=== PATIENT | male | born 2000 | race Caucasian/White ===

== ENCOUNTER 2020-03-28 03:15 | Inpatient (IN) | payer SELFPAY ==
[2020-03-28 03:18] VITALS: BP 129/89; PULSE 74; RESP 16; TEMP 36.9; O2SAT 98; BMI 23.6
--- NOTE | 2020-03-28 03:28 | W.ED.PSYCH ---
HPI - Psych General: Chief Complaint: Psychiatric Symptoms Stated Complaint: direct admit to npu/ si Time Seen by Provider: 03/28/20 03:24 History of Present Illness: HPI Narrative: 19-year-old male comes in direct admit to the [facility] from [facility] in [place]. He denies any fever, recent medical illness. MD complaint: suicidal ideation Review of Systems Const: Denies: fever(s) or chills Card: Denies: chest pain or palpitations Resp: Denies: dyspnea, productive cough, non-productive cough or wheezing MDM - Psych MDM Narrative: Medical decision making narrative: Direct admit to [facility]. He is clear of any COVID symptoms. Discharge Plan Discharge Patient Disposition: Admitted As Inpatient Clinical Impression: Suicidal ideation Condition: Stable Coding Level of Care Code ED Automobile Service Station Mechanic for Mariza Kam
[2020-03-28 03:47] VITALS: RESP 16; TEMP 36.9; O2SAT 98
--- NOTE | 2020-03-28 04:42 | PC.NURSE ---
Patient is 19/M direct admit from [facility] with SI/Depression over a break up with his girlfriend. He has extensive history of inpatient treatment since he was a child. Bal 179 and DOA positive for THC. Patient rambles and has delayed response time. He is here on an affidavit. Patient went to [facility] ED via EMS for SI. States that he called for help himself. He admits to drinking today but is not a daily drinker. He reports he has a history of SI with attempts in the past. He says that he has had thoughts of suicide this time for about 6 months intermittently. He stated that he really does not have a plan and if he did he would ?jump off a limb.? When asked if he is suicidal now, his answers are vague and says that he just wants to but that he is not suicidal at this time. He is intermittently tearful and discusses having problems with his girlfriend and states, ? I just want her back.? He admits to a history of depression but no other psychiatric diagnoses. He denies being homicidal and he denies having hallucinations. Home medication is hydroxyzine HCL 50mg PO Q6-8H PRN with No Known Drug Allergies
[2020-03-28 06:00] VITALS: BP 132/98; PULSE 85; RESP 18; TEMP 36.6; O2SAT 98
[2020-03-28] MEDS: nicotine 2 mg Gum BUCCAL ×2 (10:04→16:13)
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
[2020-03-28 14:00] VITALS: BP 116/73; PULSE 70; RESP 18; TEMP 36.7; O2SAT 98
[2020-03-28] MEDS: hyDROXYzine 25 mg Capsule 50 MG PO (20:19)
[2020-03-28] MEDS: trazodone 50 mg Tablet PO (20:20)
[2020-03-28 21:15] VITALS: BP 124/78; PULSE 64; RESP 19; TEMP 36.9; O2SAT 98
[2020-03-29 06:00] VITALS: BP 82/48; PULSE 58; RESP 12; TEMP 36.6; O2SAT 98
[2020-03-29 13:52] VITALS: BP 110/65; PULSE 67; RESP 18; TEMP 36.7; O2SAT 97
--- NOTE | 2020-03-29 14:51 | P.PN_ITS ---
Subjective NPU Subjective: Interval history: The patient says nothing much has changed at all. I agree. He is anxious, jumpy and occasionally irritable. He says he does not like being angry and cannot control his moods. We discussed lithium therapy and he agrees. We discussed patient education, including but not limited to thyroid and renal function, the need for monitoring, etc. we also discussed fluoxetine because of depressive elements in his condition. Again he agrees Medications: Reviewed: Yes Medication Review Details: Current Medications Acetaminophen (Tylenol) 650 mg PO Q4H PRN PRN Reason: MILD PAIN Benztropine Mesylate (Cogentin) 1 mg PO BID PRN PRN Reason: Mild Extrapyramidal symptoms Camphor/Menthol/Phenol (Blistex) 1 applic TOPICAL Q1H PRN PRN Reason: DRYNESS Diphenhydramine HCl (Benadryl) 50 mg IM ONCE PRN PRN Reason: Severe Extrapyramidal Symptoms Diphenhydramine HCl (Benadryl) 50 mg IM Q4H PRN PRN Reason: Severe Aggression Fluoxetine HCl (Prozac) 20 mg PO DAILY JAGJIT Haloperidol (Haldol) 5 mg PO Q4H PRN PRN Reason: AGITATION Haloperidol Lactate (Haldol Inj) 5 mg IM Q4H PRN PRN Reason: Severe Aggression Hydroxyzine Pamoate (Vistaril) 50 mg PO Q6H PRN PRN Reason: ANXIETY Last Admin: 03/28/20 20:19 Dose: 50 mg Documented by: [place] Carbonate (Eskalith) 300 mg PO BID JAGJIT [place] Carbonate (Eskalith) 300 mg PO ONCE ONE Stop: 03/29/20 14:50 Loperamide HCl (Imodium Capsule) 2 mg PO Q6H PRN PRN Reason: DIARRHEA Lorazepam (Ativan) 2 mg IM Q4H PRN PRN Reason: Severe Aggression Nicotine (Nicoderm 21 Mg Patch) 1 patch TRANSDERMA DAILY PRN PRN Reason: NICOTINE WITHDRAWAL Nicotine Polacrilex (Nicorette) 2 mg BUCCAL Q2H PRN PRN Reason: NICOTINE WITHDRAWAL Last Admin: 03/28/20 16:13 Dose: 2 mg Documented by: Olanzapine (Zyprexa Zydis) 5 mg PO Q4H PRN PRN Reason: Agitation/Psychosis Ondansetron HCl (Zofran) 4 mg PO Q6H PRN PRN Reason: NAUSEA AND VOMITING Trazodone HCl (Desyrel) 50 mg PO BEDTIME PRN PRN Reason: SLEEP Last Admin: 03/28/20 20:20 Dose: 50 mg Documented by: Mental Status Exam MSE Comments: This is a 19-year-old male who presents at his stated age. He is clean, neat and well kempt. Mood is dysphoric and angry. Affect is agitated and tense. Cognition: Patient Appearance: Appropriate Level of Consciousness: Awake, Alert, Appropriate and Follows Commands Attention Span Ability: Unable to Focus Level of Alertness: Alert, Able to Remain Focused on Simple Task and Unable to Remain Focused on Simple Task Patient Cognition Impaired: No Ability to Follow Directions: Good Executive Function Ability: No Deficits Noted and Unable to Curb Inappropriate Speech Patient Orientation (long list): Person, Place, Time, Name, Age, Birthday, Day of Month, Day of Week, Month, Time of Day and Year Comprehension Ability: No Impairment Memory Description: Intact Perception: None Receptive Language Skills Age Appropriate: Yes Hallucination Type: None Delusion Description: Not Present Thought Process: Appropriate Thought Content: Circumstantial Anxiety: Anxiety Level: Experiencing a Lot of Symptoms and Sensations Precipitating Stress Factors: Situational Crisis (Having problems with his girlfriend.) Vitals/I&O/Wt Last Vital Signs Temp 98.0 F 03/29/20 13:52 Pulse 67 03/29/20 13:52 Resp 18 03/29/20 13:52 BP 110/65 03/29/20 13:52 Pulse Ox 97 03/29/20 13:52 Weight last 48 hrs Weight 160 lb Physical Exam Narrative: EXAM NARRATIVE: Const: no acute distress, average body habitus, patient oriented x3, no limitations, healthy appearing, alert and well nourished GENERAL APPEARANCE: cooperative, well kempt, in distress and anxious NUTRITIONAL APPEARANCE: thin ORIENTATION/CONSCIOUSNESS: awake, oriented to person, place and time HENMT: FACE & SINUS: normal facial exam NOSE: Normal external nose present EXTERNAL EAR: external ears normal EXTERNAL AUDITORY CANAL: EAC's normal MOUTH: Normal oral and palatal mucosa present THROAT: posterior oropharynx normal Eye: Equal, round and reactive pupils present, EOMs intact bilaterally, conjunctivae normal and no scleral icterus Neck/C-Spine: full ROM, no meningeal signs, no JVD and Thyroid normal Chest: normal inspection of the chest Resp: normal respiratory effort AUSCULTATION: clear to auscultation bilaterally Cardio: no JVD, regular rate, regular rhythm, S1 normal heart sound present and S2 normal heart sound present Extremity: normal to inspection and full ROM Neuro: patient oriented x3, CN's II-XII intact bilaterally, moves all extremities, no focal motor deficits and no sensory deficits noted Skin: no rashes or lesions noted, no wounds, turgor normal, no jaundice, no petechiae and no mottling A&P Assessment and plan (1) Bipolar 1 disorder, mixed, moderate: The patient deserves a trial of mood stabilizer. [place] is well regarded with respect to hostility as well as to mood instability. Status: Acute Involuntary Hold Information 96 Hour Hold: 96 Hour Involuntary Admission: No Attestations NPU Medical Necessity Statement*: I anticipate 5-7 midnights additional hospitalization. Time Spent in Patient Care: Greater than 35 minutes (>than 50% of time spent in counselling and/or direct pt care on unit) . 50 minutes Coding Level of Care Code Acute Insurance Agency Sales Manager for [facility] Fwd Diagnoses Bipolar 1 disorder, mixed, moderate F31.62
[2020-03-29] MEDS: lithium carbonate 300 mg Capsule PO ×2 (15:36→17:44)
[2020-03-29] MEDS: fluoxetine 20 mg Capsule PO (15:36)
[2020-03-29] MEDS: nicotine 2 mg Gum BUCCAL ×2 (16:29→18:25)
[2020-03-29 21:14] VITALS: BP 110/68; PULSE 75; RESP 19; TEMP 36.9; O2SAT 98
[2020-03-29] MEDS: OLANZapine 5 mg ODT PO (21:56)
[2020-03-29] MEDS: hyDROXYzine 25 mg Capsule 50 MG PO (21:57)
[2020-03-29] MEDS: trazodone 50 mg Tablet PO (21:57)
[2020-03-30 06:00] VITALS: BP 98/56; PULSE 49; RESP 16; TEMP 37.1; O2SAT 97
[2020-03-30] MEDS: fluoxetine 20 mg Capsule PO (09:11)
[2020-03-30] MEDS: lithium carbonate 300 mg Capsule PO (09:11)
--- NOTE | 2020-03-30 11:59 | P.DS_ITS ---
Diagnoses at Discharge Discharge Diagnosis (1) Bipolar 1 disorder, mixed, moderate: Status: Resolved Problem details: Patient experienced uncontrollable anger, mood swings and dysphoria. Response to lithium. Reason for Visit Reason for Visit: direct admit to npu/ si Hospital Course Hospital Course Day #2: The patient remains cranky, irritable and [facility] [place] pharmacotherapy as well as fluoxetine are initiated. This in combination may well cool his ardor. Discharge Summary Patient has calmed down on low-dose lithium. The fluoxetine has been discontinued. Patient education undertaken. Involuntary Hold Information 2 96 Hour Hold: 96 Hour Involuntary Admission: No Mental Status Exam MSE Comments: This is a 19-year-old male who presents at his stated age. He is clean, neat and well kempt. Mood is calm and brighter. Affect is friendly and appropriate. Cognition: Patient Appearance: Appropriate Level of Consciousness: Awake, Alert, Appropriate and Follows Commands Attention Span Ability: Unable to Focus Level of Alertness: Alert, Able to Remain Focused on Simple Task and Unable to Remain Focused on Simple Task Patient Cognition Impaired: No Ability to Follow Directions: Good Executive Function Ability: No Deficits Noted and no more inappropriate Speech Patient Orientation (long list): Person, Place, Time, Name, Age, Birthday, Day of Month, Day of Week, Month, Time of Day and Year Comprehension Ability: No Impairment Memory Description: Intact Perception: None Receptive Language Skills Age Appropriate: Yes Hallucination Type: None Delusion Description: Not Present Thought Process: Integrated and free of any racing, blocking or looseness of association Thought Content: Focused Anxiety: Low Precipitating Stress Factors: Situational Crisis (Having problems with his girlfriend.) Physical Exam Narrative: EXAM NARRATIVE: Const: no acute distress, average body habitus, patient oriented x3, no limitations, healthy appearing, alert and well nourished GENERAL APPEARANCE: cooperative, well kempt, relaxed NUTRITIONAL APPEARANCE: thin ORIENTATION/CONSCIOUSNESS: awake, oriented to person, oriented to place and oriented to time HENMT: FACE & SINUS: normal facial exam NOSE: Normal external nose present EXTERNAL EAR: external ears normal EXTERNAL AUDITORY CANAL: EAC's normal MOUTH: Normal oral and palatal mucosa present THROAT: posterior oropharynx normal Eye: EOMs intact bilaterally, conjunctivae normal and no scleral icterus PUPIL: Equal, round and reactive pupils present Neck/C-Spine: full ROM, no meningeal signs, no JVD and Thyroid normal Chest: normal inspection of the chest Resp: normal respiratory effort AUSCULTATION: clear to auscultation bilaterally Cardio: no JVD, regular rate, regular rhythm, S1 normal heart sound present and S2 normal heart sound present Extremity: normal to inspection and full ROM Neuro: patient oriented x3, CN's II-XII intact bilaterally, moves all extremities, no focal motor deficits and no sensory deficits noted Skin: no rashes or lesions noted, no wounds, turgor normal, no jaundice, no petechiae and no mottling Discharge Data Vitals: Last Vital Signs Temp 98.7 F 03/30/20 06:00 Pulse 49 L 03/30/20 06:00 Resp 16 03/30/20 06:00 BP 98/56 03/30/20 06:00 Pulse Ox 97 03/30/20 06:00 Discharge Plan Discharge Patient Disposition: Home Condition: Stable Prescriptions: New lithium carbonate 300 mg Capsule 300 mg PO BID 30 Days Qty: 60 RF: 2 Discontinued fluoxetine 20 mg capsule 20 mg PO DAILY RF: 0 Discharge Orders: Discharge Order (Routine); Ordered 03/30/20 Ordered By: Montana Boyle Referrals: [facility] [Other] - 1-3 days (call for follow-up appointment as soon as you can, ) Discharge Diet: Usual diet Discharge Activity: Resume usual activity and May return to work/school without restrictions Patient Instructions: Anxiety (DC) Discharge Attestations NPU Time Spent in Discharge Care*: greater than 30 min Specific Discharge Activities: Specific discharge activities: educating patient, discussing with pcp/other providers, discussing with ed case manager/social workers/dc planners, documenting/other paperwork and evaluating patient/reviewing data Status at Discharge: Cognitive status at discharge: cognitively intact , Behavioral status at discharge: cooperative , Functional status at discharge: independent ambulation Overall status at discharge: other (Patient appears to be better than he has been for quite a while.) Coding Level of Care Code Acute Payroll Accounting Specialist for Chg Fwd Diagnoses Bipolar 1 disorder, mixed, moderate F31.62
[2020-03-30 12:06] VITALS: BP 98/56; PULSE 49; RESP 16; TEMP 37.1; O2SAT 97
[2020-03-30] MEDS: nicotine 2 mg Gum BUCCAL (13:35)
== END 2020-03-30 13:55 | DRG 885 ==
LOC: ER 03:40 → NP 03:41
DX: F31.62 Bipolar disorder, current episode mixed, moderate (principal); R45.851 Suicidal ideations
CPT/HCPCS: 12345; 99284